=== PATIENT | female | born 1965 | race Caucasian/White ===

== ENCOUNTER 2017-11-11 13:28 | Outpatient (CLI) | payer OTHER ==
--- NOTE | 2017-11-17 15:35 | MMO ---
MAMMOGRAM DIGITAL SCREENING BILATERAL: DATE: 11/11/17. HISTORY: A 52-year-old female for routine bilateral screening mammogram. COMPARISON: 03/20/16 and 09/01/14. TECHNIQUE: Digital mammographic views. Computer-aided detection (CAD) utilized. FINDINGS: The breasts are heterogeneously dense, which may obscure small masses. There is no evidence of suspicious mass, suspicious calcifications, or architectural distortion. The re is no significant interval change since the prior mammogram. IMPRESSION: 1) BIRADS 1- Negative. 2) Recommendation: routine bilateral annual screening mammogram (unless the patient develops suspicio us clinical findings that would warrant earlier imaging follow up). BIRADS 1: Negative Routine annual screening mammography (for women over age 40) jil [] POS: JASON
== END 2017-11-11 13:29 | disposition home or self-care (01) ==
LOC: SCSMAMMO 13:28
PROVIDERS: ATTEND Family Medicine
DX: Z12.31 Encounter for screening mammogram for malignant neoplasm of breast (principal)
CPT/HCPCS: 77067

== ENCOUNTER 2019-01-19 10:04 | Outpatient (CLI) | payer OTHER ==
--- NOTE | 2019-01-19 10:32 | RAD ---
EXAM: 3 views of the right hand COMPARISON: None HISTORY: Hand pain FINDINGS: 3 views of the right hand shows no evidence of acute fracture or dislocation. Joint space n arrowing is seen in the metacarpophalangeal joint of the index finger. Joint space narrowing is also seen in the first CMC joint. No soft tissue swelling is present. IMPRESSION: Mild right hand osteoarthritis without acute osseous abnormality.
[2019-01-19 16:51] LABS: CCP IgG Antibody 0.9 EliAU/mL (<7 Negative); EliA RAS New Method **** NEW METHOD ****; Rheumatoid Factor IgA Antibody 2.8 IU/mL (<14 Negative); Rheumatoid Factor IgM Antibody 0.5 IU/mL (<3.5 Negative)
== END 2019-01-19 10:05 | disposition home or self-care (01) ==
LOC: SCSRAD 10:04
PROVIDERS: ATTEND Family Medicine
DX: M13.0 Polyarthritis, unspecified (principal)
CPT/HCPCS: 36415; 83520; 86200

== ENCOUNTER 2020-01-11 14:09 | Outpatient (CLI) | payer OTHER ==
--- NOTE | 2020-01-13 08:11 | MMO ---
Bilateral MAMMO Bilat Screen [facility]. CLINICAL HISTORY: Patient is 54 years old and is seen for screening. The patient has no family history of breast cancer. The patient has no personal history of cancer. VIEWS: The views performed were: bilateral craniocaudal with tomosynthesis; bilateral mediolateral oblique with tomosynthesis; and bilateral exaggerated craniocaudal. FILMS COMPARED: The present examination has been compared to prior imaging studies performed at 09/01/2014 and 11/11/2017, and at [facility] on 02/08/2019. This study has been interpreted with the assistance of computer-aided detection. MAMMOGRAM FINDINGS: The breasts are heterogeneously dense, which could obscure a lesion on mammography. There are no suspicious masses, suspicious calcifications, or new areas of architectural distortion. IMPRESSION: THERE IS NO MAMMOGRAPHIC EVIDENCE OF MALIGNANCY. A ROUTINE FOLLOW-UP MAMMOGRAM IN 1 YEAR IS RECOMMENDED. THE RESULTS OF THIS EXAM WERE SENT TO THE PATIENT. ACR BI-RADS Category 1 - Negative MAMMOGRAPHY NOTE: 1. A negative mammogram report should not delay a biopsy if a dominant of clinically suspicious mass is present. 2. Approximately 10% to 15% of breast cancers are not detected by mammography. 3. Adenosis and dense breasts may obscure an underlying neoplasm. Reported by: Karla AGUILAR Electonically Signed: [id number]
== END 2020-01-11 14:10 | disposition home or self-care (01) ==
LOC: BICMAMMO 14:09
PROVIDERS: ATTEND Obstetrics & Gynecology
DX: Z12.31 Encounter for screening mammogram for malignant neoplasm of breast (principal)
CPT/HCPCS: 77063; 77067

== ENCOUNTER 2020-01-11 14:35 | Outpatient (CLI) | payer OTHER ==
--- NOTE | 2020-01-11 15:00 | RAD ---
EXAM: Chest PA and lateral: HISTORY: Chronic bronchitis COMPARISON: 03/17/2003 FINDINGS: Mild bilateral hyperinflation chronic lung change. Minimally progressive pleural and parenchymal scarring in the left lower lobe and left lung base. Heart size:Within normal limits. Lungs:Clear of acute process. No confluent pneumonia, overt edema, pleural effusion, or other acute process. IMPRESSION: Minimally progressive scarring particularly in the left base. No significant new process.
== END 2020-01-11 14:36 | disposition home or self-care (01) ==
LOC: BICRAD 14:35
PROVIDERS: ATTEND Otolaryngology Otolaryngic Allergy
DX: J42 Unspecified chronic bronchitis (principal); J98.4 Other disorders of lung
CPT/HCPCS: 71046

== ENCOUNTER 2021-03-12 13:05 | Outpatient (CLI) | payer OTHER | END 2021-03-12 13:06 | disposition home or self-care (01) | LOC: SCSMRI 13:05 | PROVIDERS: ATTEND Orthopaedic Surgery | DX: M17.12 Unilateral primary osteoarthritis, left knee (principal); S83.242A Other tear of medial meniscus, current injury, left knee, initial encounter; M22.2X2 Patellofemoral disorders, left knee; M25.462 Effusion, left knee ==

== ENCOUNTER 2021-04-16 12:35 | Outpatient (CLI) | payer OTHER ==
[2021-04-16 13:53] LABS: #Basophils 0.1 10x3/uL (0.0-0.2); #Eosinphils 0.2 10x3/uL (0.0-0.5); #Monocytes 0.4 10x3/uL (0.0-1.1); #Neutrophils 2.6 10x3/uL (1.5-8.4); %Eosinophils 3.8 % (0.0-6.0); %Lymphocytes 37.5 % (18.0-47.0); %Monocytes 7.6 % (0.0-10.0); %Neutrophils 49.9 % (40.0-75.0); Hemoglobin 12.3 g/dL (12.0-15.5); Mean Corpuscular Hemoglobin 30.4 pg (27.0-33.0); Mean Corpuscular Volume 92.1 fl (81.6-98.3); Platelet Count 245 10x3/uL (150-450); RBC Distribution Width 12.1 % (11.5-14.5); Red Blood Cell (RBC) Count 4.05 10x6/uL (3.90-5.03); White Blood Cell (WBC) Count 5.3 10x3/uL (3.5-10.5)
[2021-04-16 14:05] LABS: Anion Gap 13 mmol/L (10-20); BUN (Urea Nitrogen) 10 mg/dL (9.8-20.1); Calc. Creatinine Clearance 0 mL/min (70-130); Calcium 9.5 mg/dL (7.8-10.44); Carbon Dioxide 28 mmol/L (22-29); Chloride 103 mmol/L (98-107); Glucose 91 mg/dL (70-105); Potassium 3.9 mmol/L (3.5-5.1); Sodium 140 mmol/L (136-145)
[2021-04-17 07:24] LABS: SARS-CoV-2 PCR by NAA DETECTED (NotDetected)
== END 2021-04-16 12:36 | disposition home or self-care (01) ==
LOC: LABBT 12:35
PROVIDERS: ATTEND Orthopaedic Surgery
DX: U07.1 COVID-19 (principal); Z01.818 Encounter for other preprocedural examination; M17.12 Unilateral primary osteoarthritis, left knee
CPT/HCPCS: 71046; 80048; 85025; 93005; 93010; U0003; U0005

== ENCOUNTER 2021-05-17 06:12 | Day surgery (SDC) | payer OTHER ==
[2021-05-08 13:17] VITALS: BMI 25.7
[2021-05-17] MEDS ORDERED: Bupivacaine 0.25% HCL 30 ML VIAL ONE (06:34)
[2021-05-17] MEDS ORDERED: EPINEPHrine 1 MG/ML AMP ONE (06:34)
[2021-05-17] MEDS ORDERED: Midazolam HCl 2 mg/2 ml Vial ONE (06:47)
[2021-05-17] MEDS ORDERED: PROPOFOL 20 ML ONE (06:48)
[2021-05-17] MEDS ORDERED: Fentanyl 100 MCG/2 ML VIAL ONE (07:04)
[2021-05-17] MEDS ORDERED: Dexmedetomidine 200 MCG/2 ML VIAL ONE (07:05)
[2021-05-17] MEDS ORDERED: ceFAZolin 2 GM/Dextrose 50 ML IVPB ONE (07:17)
[2021-05-17] MEDS ORDERED: Ketorolac Tromethamine 30 MG/ML VIAL ONE (07:36)
[2021-05-17] MEDS ORDERED: Ondansetron PF 4 MG/2 ML Vial ONE (07:36)
[2021-05-17] MEDS ORDERED: Bupivacaine PF 0.5% 30 ML VIAL ONE (07:36)
[2021-05-17] MEDS ORDERED: Lidocaine 1% PF 5 ML VIAL ONE (07:36)
[2021-05-17] MEDS ORDERED: Lidocaine 2% w/Epinephrine 1:200K 20 ML VIAL ONE (07:36)
[2021-05-17] MEDS ORDERED: ePHEDrine 50 MG/ML VIAL ONE (07:36)
[2021-05-17] MEDS ORDERED: Dexamethasone 20 MG/5 ML VIAL ONE (07:36)
[2021-05-17] MEDS ORDERED: PROPOFOL 200 MG/20 ML VIAL ONE (07:36)
== END 2021-05-17 10:25 | disposition home or self-care (01) ==
LOC: SDC 06:12
PROVIDERS: ATTEND Orthopaedic Surgery
PROC: 0SBD4ZZ Excision of Left Knee Joint, Percutaneous Endoscopic Approach (ICD-10-PCS; principal; 2021-05-17)
DX: S83.242A Other tear of medial meniscus, current injury, left knee, initial encounter (principal); S83.282A Other tear of lateral meniscus, current injury, left knee, initial encounter; M17.12 Unilateral primary osteoarthritis, left knee
CPT/HCPCS: J0171; J0690; J1100; J1885; J2250; J2405; J2704; J3010; J3490; S0020

== ENCOUNTER 2021-10-18 15:28 | Outpatient (CLI) | payer OTHER | END 2021-10-18 15:29 | disposition home or self-care (01) | LOC: BICMAMMO 15:28 | PROVIDERS: ATTEND Family Medicine | DX: Z12.31 Encounter for screening mammogram for malignant neoplasm of breast (principal) | CPT/HCPCS: 77063; 77067 ==

== ENCOUNTER 2022-04-03 08:52 | Outpatient (CLI) | payer OTHER ==
[2022-04-03 09:50] LABS: #Basophils 0.1 10x3/uL (0.0-0.2); #Eosinphils 0.2 10x3/uL (0.0-0.5); #Monocytes 0.4 10x3/uL (0.0-1.1); #Neutrophils 3.5 10x3/uL (1.5-8.4); %Eosinophils 3.5 % (0.0-6.0); %Lymphocytes 33.3 % (18.0-47.0); Hemoglobin 12.5 g/dL (12.0-15.5); Mean Corpuscular Hemoglobin 30.4 pg (27.0-33.0); Mean Corpuscular Volume 92.2 fl (81.6-98.3); Mean Platelet Volume 9.8 fl (7.4-10.4); Platelet Count 248 10x3/uL (150-450); RBC Distribution Width 12.9 % (11.5-14.5); Red Blood Cell (RBC) Count 4.11 10x6/uL (3.90-5.03); White Blood Cell (WBC) Count 6.3 10x3/uL (3.5-10.5)
== END 2022-04-03 08:53 | disposition home or self-care (01) ==
LOC: LABBT 08:52
PROVIDERS: ATTEND Orthopaedic Surgery Hand Surgery
DX: Z01.818 Encounter for other preprocedural examination (principal); M18.11 Unilateral primary osteoarthritis of first carpometacarpal joint, right hand
CPT/HCPCS: 85025; 93005; 93010

== ENCOUNTER 2022-11-04 15:42 | Outpatient (CLI) | payer OTHER | END 2022-11-04 15:43 | disposition home or self-care (01) | LOC: SCSRAD 15:42 | PROVIDERS: ATTEND Family Medicine | DX: R59.0 Localized enlarged lymph nodes (principal) | CPT/HCPCS: 71046 ==

== ENCOUNTER 2022-11-07 17:01 | Inpatient (IN) | payer OTHER ==
[2022-11-07] MEDS ORDERED: Acetaminophen 325 MG TAB PO PRN (20:24)
[2022-11-07] MEDS ORDERED: Ondansetron ODT 4 MG TAB PO PRN (20:24)
[2022-11-07] MEDS ORDERED: Senokot S 8.6-50 MG TAB PO PRN (20:24)
[2022-11-07] MEDS ORDERED: Dextrose 5%-Lactated Ringers 1,000 ML IV SCH (20:30)
[2022-11-07] MEDS: Famotidine 20 MG TAB PO SCH (21:30)
[2022-11-07 21:32] LABS: #Basophils 0.1 thou/uL (0.0-0.2); #Eosinphils 0.1 thou/uL (0.0-0.7); #Monocytes 0.5 thou/uL (0.11-0.59); #Neutrophils 6.5 thou/uL (1.40-6.50); %Basophils 0.6 % (0.0-1.0); %Eosinophils 0.6 % (0.0-10.0); %Monocytes 6.6 % (0.0-10.0); Hematocrit 37.3 % (36.0-47.0); Hemoglobin 12.1 g/dL (12.0-16.0); Mean Corpuscular HGB CONC 32.4 g/dL (32.0-36.0); Mean Corpuscular Hemoglobin 30.2 pg (27.0-31.0); Platelet Count 295 10x3/uL (130-400); RBC Distribution Width 13.6 % (11.5-14.5); Red Blood Cell (RBC) Count 4.01 mill/uL (4.20-5.40); White Blood Cell (WBC) Count 8.2 10x3/uL (4.8-10.8)
[2022-11-07] MEDS ORDERED: Morphine 4 MG/ML VIAL SLOW IVP PRN (21:39)
[2022-11-07 22:03] LABS: BUN (Urea Nitrogen) 12 mg/dL (9.8-20.1); Calc. Creatinine Clearance 104 mL/min (70-130); Calcium 7.9 mg/dL (7.8-10.44); Carbon Dioxide 18 mmol/L (22-29); Estimated GFR 103; Glucose 129 mg/dL (70-105)
[2022-11-07 22:13] LABS: Anion Gap 18 mmol/L (10-20); Chloride 102 mmol/L (98-107); Sodium 133 mmol/L (136-145)
[2022-11-07] MEDS: Dextrose 5%-Lactated Ringers 1,000 ML IV SCH (22:28)
[2022-11-07] MEDS: Morphine 4 MG/ML VIAL SLOW IVP PRN (22:33)
[2022-11-08] MEDS ORDERED: hydrOXYzine 25 MG TAB PO SCH ×2 (02:30→21:00)
[2022-11-08] MEDS: Morphine 4 MG/ML VIAL SLOW IVP PRN (04:49)
[2022-11-08 05:29] LABS: #Monocytes 0.6 thou/uL (0.11-0.59); #Neutrophils 7.6 thou/uL (1.40-6.50); %Basophils 0.3 % (0.0-1.0); %Eosinophils 0.1 % (0.0-10.0); %Lymphocytes 8.7 % (21.0-51.0); %Monocytes 6.6 % (0.0-10.0); %Neutrophils 83.9 % (42.0-75.0); Mean Corpuscular HGB CONC 32.4 g/dL (32.0-36.0); Mean Corpuscular Hemoglobin 29.9 pg (27.0-31.0); Mean Corpuscular Volume 92.3 fl (78.0-98.0); Mean Platelet Volume 9.9 fL (7.4-10.4); Platelet Count 280 10x3/uL (130-400); RBC Distribution Width 13.6 % (11.5-14.5); Red Blood Cell (RBC) Count 4.01 mill/uL (4.20-5.40); White Blood Cell (WBC) Count 9.1 10x3/uL (4.8-10.8)
[2022-11-08 05:52] LABS: ALT (SGPT) 222 U/L (8-55); AST (SGOT) 200 U/L (5-34); Albumin 3.4 g/dL (3.5-5.0); Alkaline Phosphatase 165 U/L (40-110); Anion Gap 15 mmol/L (10-20); BUN (Urea Nitrogen) 14 mg/dL (9.8-20.1); Bilirubin, Total 0.4 mg/dL (0.2-1.2); Calc. Creatinine Clearance 98 mL/min (70-130); Calcium 7.9 mg/dL (7.8-10.44); Carbon Dioxide 18 mmol/L (22-29); Chloride 102 mmol/L (98-107); Estimated GFR 102; Globulin 2.5 g/dL (2.4-3.5); Glucose 158 mg/dL (70-105); Potassium 4.4 mmol/L (3.5-5.1); Protein, Total 5.9 g/dL (6.0-8.3); Sodium 131 mmol/L (136-145)
[2022-11-08] MEDS ORDERED: Temazepam 15 MG CAP PO PRN (08:51)
[2022-11-08] MEDS ORDERED: Lisinopril 20 MG TAB PO SCH (09:00)
[2022-11-08] MEDS: ALPRAZolam 0.5 MG TAB PO PRN ×2 (09:17→18:55)
[2022-11-08] MEDS: Multivit, Therapeutic 1 TAB PO SCH (09:17)
[2022-11-08] MEDS: Famotidine 20 MG TAB PO SCH ×2 (09:17→19:30)
[2022-11-08] MEDS: Dextrose 5%-Lactated Ringers 1,000 ML IV SCH (12:26)
[2022-11-08] MEDS ORDERED: Ketorolac Tromethamine 30 MG/ML VIAL IVP SCH (14:00)
[2022-11-08] MEDS: LevoFLOXacin 750 mg/D5W 750 MG in Premix Bag 1 BAG IVPB SCH (14:17)
[2022-11-08] MEDS ORDERED: Fentanyl 250 MCG/5 ML VIAL ONE (14:21)
[2022-11-08] MEDS ORDERED: Lidocaine 1% PF 5 ML VIAL ONE (14:32)
[2022-11-08] MEDS ORDERED: Bupivacaine HCl 0.5%/Epinephrine 1:200,000/PF 30 ml Vial ONE ×2 (14:32→14:38)
[2022-11-08] MEDS ORDERED: PHENYLEPHRINE-NS 100 MCG/ML 10 ML SYRINGE ONE (14:32)
[2022-11-08] MEDS ORDERED: Ondansetron PF 4 MG/2 ML Vial ONE (14:32)
[2022-11-08] MEDS ORDERED: NEOSTIGMINE 3 MG/3 ML SYR 3 MG/3 ML SYRINGE ONE (14:32)
[2022-11-08] MEDS ORDERED: PROPOFOL 200 MG/20 ML VIAL ONE (14:32)
[2022-11-08] MEDS ORDERED: Rocuronium Bromide 10 MG/ML (10ML VIAL) ONE (14:32)
[2022-11-08] MEDS ORDERED: Dexamethasone 20 MG/5 ML VIAL ONE (14:32)
[2022-11-08] MEDS ORDERED: Glycopyrrolate 0.2 MG/ML 5 ML SYRINGE ONE (14:32)
[2022-11-08] MEDS ORDERED: Ondansetron HCl/PF 4 MG/2 ML Vial IVP PRN (17:07)
[2022-11-08] MEDS ORDERED: Promethazine HCl 25 MG/ML VIAL IM PRN (17:07)
[2022-11-08] MEDS ORDERED: Fentanyl 100 MCG/2 ML VIAL SLOW IVP PRN (17:10)
[2022-11-08] MEDS ORDERED: fentaNYL 50 mcg/mL 1 mL Vial ONE ×3 (17:19→18:12)
[2022-11-08] MEDS: Lactated Ringer's 1,000 ML IV SCH ×2 (17:28→22:58)
[2022-11-08] MEDS: traMADol HCl 50 MG TAB PO PRN (19:20)
[2022-11-08] MEDS: Nicotine 14 MG PATCH TD SCH (19:24)
[2022-11-08] MEDS: Ketorolac Tromethamine 30 MG/ML VIAL IVP PRN (20:28)
[2022-11-08] MEDS ORDERED: Gabapentin 300 MG CAP PO SCH (21:00)
[2022-11-08] MEDS ORDERED: Montelukast Sodium 10 mg Tablet PO SCH (21:00)
[2022-11-08] MEDS: fentaNYL 50 mcg/mL 1 mL Vial SLOW IVP PRN (21:00)
[2022-11-08] MEDS ORDERED: Fluticasone Propionate Nasal Spray 16 gm Bottle NASAL PRN (23:20)
[2022-11-08] MEDS ORDERED: Azelastine 137 MCG/NASAL Spray 30 ML NS PRN (23:21)
[2022-11-09] MEDS: ALPRAZolam 0.5 MG TAB PO PRN ×2 (01:47→20:10)
[2022-11-09] MEDS: fentaNYL 50 mcg/mL 1 mL Vial SLOW IVP PRN (02:24)
[2022-11-09] MEDS: Ketorolac Tromethamine 30 MG/ML VIAL IVP PRN ×2 (05:02→14:45)
[2022-11-09] MEDS: traMADol HCl 50 MG TAB PO PRN (05:03)
[2022-11-09 06:01] LABS: #Monocytes 0.7 thou/uL (0.11-0.59); #Neutrophils 8.2 thou/uL (1.40-6.50); %Basophils 0.3 % (0.0-1.0); %Eosinophils 0.1 % (0.0-10.0); %Lymphocytes 10.4 % (21.0-51.0); %Monocytes 6.7 % (0.0-10.0); %Neutrophils 81.9 % (42.0-75.0); Hematocrit 34.3 % (36.0-47.0); Hemoglobin 11.2 g/dL (12.0-16.0); Mean Corpuscular HGB CONC 32.7 g/dL (32.0-36.0); Mean Corpuscular Hemoglobin 30.3 pg (27.0-31.0); Mean Corpuscular Volume 92.7 fl (78.0-98.0); Platelet Count 261 10x3/uL (130-400); RBC Distribution Width 13.7 % (11.5-14.5)
[2022-11-09 06:22] LABS: Anion Gap 12 mmol/L (10-20); BUN (Urea Nitrogen) 12 mg/dL (9.8-20.1); Calc. Creatinine Clearance 111 mL/min (70-130); Calcium 7.5 mg/dL (7.8-10.44); Carbon Dioxide 22 mmol/L (22-29); Chloride 100 mmol/L (98-107); Estimated GFR 104; Glucose 99 mg/dL (70-105); Potassium 4.3 mmol/L (3.5-5.1); Sodium 130 mmol/L (136-145)
[2022-11-09 08:48] LABS: ALT (SGPT) 265 U/L (8-55); AST (SGOT) 223 U/L (5-34); Albumin 2.8 g/dL (3.5-5.0); Alkaline Phosphatase 117 U/L (40-110); Bilirubin, Direct 0.3 mg/dL (0.1-0.3); Bilirubin, Total 0.4 mg/dL (0.2-1.2)
[2022-11-09] MEDS ORDERED: Pantoprazole 40 MG VIAL IVP SCH (09:00)
[2022-11-09] MEDS: HYDROcodone/Acetaminophen 5/325 mg Tablet PO PRN ×3 (09:47→20:10)
[2022-11-09] MEDS: Famotidine 20 MG TAB PO SCH ×2 (09:48→20:10)
[2022-11-09] MEDS: Multivit, Therapeutic 1 TAB PO SCH (09:50)
[2022-11-09] MEDS: Lactated Ringer's 1,000 ML IV SCH (10:18)
[2022-11-09] MEDS: Ipratropium/Albuterol 3 ML NEB NEB SCH ×2 (14:01→18:14)
[2022-11-09] MEDS: Nicotine 14 MG PATCH TD SCH (14:44)
[2022-11-09] MEDS: LevoFLOXacin 750 mg/D5W 750 MG in Premix Bag 1 BAG IVPB SCH (14:44)
[2022-11-09] MEDS ORDERED: Cyclobenzaprine 10 MG TAB PO SCH (16:00)
[2022-11-10] MEDS: HYDROcodone/Acetaminophen 5/325 mg Tablet PO PRN ×5 (00:32→20:28)
[2022-11-10] MEDS: ALPRAZolam 0.5 MG TAB PO PRN ×4 (00:33→20:27)
[2022-11-10] MEDS: Ipratropium/Albuterol 3 ML NEB NEB SCH ×2 (01:39→07:25)
[2022-11-10 07:16] LABS: #Eosinphils 0.1 thou/uL (0.0-0.7); #Monocytes 0.5 thou/uL (0.11-0.59); #Neutrophils 6.5 thou/uL (1.40-6.50); %Basophils 0.3 % (0.0-1.0); %Eosinophils 1.4 % (0.0-10.0); %Lymphocytes 8.8 % (21.0-51.0); %Monocytes 6.4 % (0.0-10.0); %Neutrophils 82.7 % (42.0-75.0); Hematocrit 31.3 % (36.0-47.0); Hemoglobin 10.2 g/dL (12.0-16.0); Mean Corpuscular HGB CONC 32.6 g/dL (32.0-36.0); Mean Corpuscular Hemoglobin 30.5 pg (27.0-31.0); Mean Corpuscular Volume 93.7 fl (78.0-98.0); Mean Platelet Volume 9.5 fL (7.4-10.4); Platelet Count 229 10x3/uL (130-400); RBC Distribution Width 13.9 % (11.5-14.5); Red Blood Cell (RBC) Count 3.34 mill/uL (4.20-5.40); White Blood Cell (WBC) Count 7.8 10x3/uL (4.8-10.8)
[2022-11-10 07:33] LABS: ALT (SGPT) 196 U/L (8-55); AST (SGOT) 124 U/L (5-34); Albumin 2.7 g/dL (3.5-5.0); Alkaline Phosphatase 104 U/L (40-110); Anion Gap 11 mmol/L (10-20); BUN (Urea Nitrogen) 7 mg/dL (9.8-20.1); Bilirubin, Total 0.3 mg/dL (0.2-1.2); Calc. Creatinine Clearance 130 mL/min (70-130); Calcium 7.7 mg/dL (7.8-10.44); Carbon Dioxide 25 mmol/L (22-29); Chloride 102 mmol/L (98-107); Estimated GFR 109; Globulin 2.2 g/dL (2.4-3.5); Glucose 106 mg/dL (70-105); Potassium 4.2 mmol/L (3.5-5.1); Protein, Total 4.9 g/dL (6.0-8.3); Sodium 134 mmol/L (136-145)
[2022-11-10] MEDS: Famotidine 20 MG TAB PO SCH ×2 (09:39→20:27)
[2022-11-10] MEDS: Multivit, Therapeutic 1 TAB PO SCH (09:40)
[2022-11-10] MEDS: LevoFLOXacin 750 mg/D5W 750 MG in Premix Bag 1 BAG IVPB SCH (13:39)
[2022-11-10] MEDS: Ipratropium/Albuterol 3 ML NEB EZPAP SCH ×2 (14:45→19:07)
[2022-11-10] MEDS: Nicotine 14 MG PATCH TD SCH (15:27)
[2022-11-10] MEDS: Bisacodyl 10 MG SUPP PR SCH ×2 (20:28→20:30)
[2022-11-10] MEDS ORDERED: Ketorolac Tromethamine 10 MG TAB PO PRN (23:14)
[2022-11-11] MEDS: HYDROcodone/Acetaminophen 5/325 mg Tablet PO PRN ×5 (00:39→20:21)
[2022-11-11] MEDS: Ipratropium/Albuterol 3 ML NEB EZPAP SCH ×4 (00:47→19:09)
[2022-11-11 06:35] LABS: #Eosinphils 0.2 thou/uL (0.0-0.7); #Monocytes 0.4 thou/uL (0.11-0.59); #Neutrophils 4.6 thou/uL (1.40-6.50); %Basophils 0.3 % (0.0-1.0); %Eosinophils 3.4 % (0.0-10.0); %Lymphocytes 12.2 % (21.0-51.0); %Monocytes 6.1 % (0.0-10.0); %Neutrophils 77.7 % (42.0-75.0); Hematocrit 34.9 % (36.0-47.0); Mean Corpuscular HGB CONC 31.5 g/dL (32.0-36.0); Mean Corpuscular Hemoglobin 29.6 pg (27.0-31.0); Mean Corpuscular Volume 94.1 fl (78.0-98.0); Mean Platelet Volume 9.5 fL (7.4-10.4); Platelet Count 262 10x3/uL (130-400); RBC Distribution Width 13.8 % (11.5-14.5); Red Blood Cell (RBC) Count 3.71 mill/uL (4.20-5.40); White Blood Cell (WBC) Count 5.9 10x3/uL (4.8-10.8)
[2022-11-11 07:10] LABS: ALT (SGPT) 154 U/L (8-55); AST (SGOT) 81 U/L (5-34); Albumin 2.7 g/dL (3.5-5.0); Alkaline Phosphatase 102 U/L (40-110); Anion Gap 12 mmol/L (10-20); BUN (Urea Nitrogen) 7 mg/dL (9.8-20.1); Bilirubin, Total 0.4 mg/dL (0.2-1.2); Calc. Creatinine Clearance 107 mL/min (70-130); Calcium 8.1 mg/dL (7.8-10.44); Carbon Dioxide 23 mmol/L (22-29); Chloride 103 mmol/L (98-107); Estimated GFR 104; Globulin 2.4 g/dL (2.4-3.5); Glucose 96 mg/dL (70-105); Potassium 3.5 mmol/L (3.5-5.1); Protein, Total 5.1 g/dL (6.0-8.3); Sodium 134 mmol/L (136-145)
[2022-11-11] MEDS: Acetaminophen 325 MG TAB PO PRN ×2 (07:47→17:52)
[2022-11-11] MEDS: Multivit, Therapeutic 1 TAB PO SCH (07:49)
[2022-11-11] MEDS: Polyethylene Glycol 3350 17 GM Packet PO SCH (08:34)
[2022-11-11] MEDS: Senokot S 8.6-50 MG TAB PO SCH ×2 (08:34→20:22)
[2022-11-11] MEDS: Famotidine 20 MG TAB PO SCH ×2 (08:34→20:21)
[2022-11-11] MEDS ORDERED: Electrolyte Replacement Protocol 1 EACH FS SCH (10:15)
[2022-11-11] MEDS ORDERED: Potassium Chloride 20 MEQ TAB PO SCH (10:15)
[2022-11-11] MEDS ORDERED: Electrolyte Replacement Protocol FS PRN (10:15)
[2022-11-11 10:32] LABS: #Eosinphils 0.2 thou/uL (0.0-0.7); #Monocytes 0.5 thou/uL (0.11-0.59); #Neutrophils 5.4 thou/uL (1.40-6.50); Hemoglobin 11.5 g/dL (12.0-16.0); RBC Distribution Width 13.8 % (11.5-14.5); White Blood Cell (WBC) Count 6.8 10x3/uL (4.8-10.8)
[2022-11-11 10:41] LABS: %Basophils 0.4 % (0.0-1.0); %Eosinophils 2.5 % (0.0-10.0); %Lymphocytes 10.8 % (21.0-51.0); %Monocytes 6.6 % (0.0-10.0); %Neutrophils 79.4 % (42.0-75.0); Hematocrit 35.7 % (36.0-47.0); Mean Corpuscular HGB CONC 32.2 g/dL (32.0-36.0); Mean Corpuscular Hemoglobin 30.1 pg (27.0-31.0); Mean Corpuscular Volume 93.5 fl (78.0-98.0); Mean Platelet Volume 9.4 fL (7.4-10.4); Platelet Count 279 10x3/uL (130-400); Red Blood Cell (RBC) Count 3.82 mill/uL (4.20-5.40)
[2022-11-11] MEDS: ALPRAZolam 0.5 MG TAB PO PRN ×2 (11:52→18:04)
[2022-11-11] MEDS: Furosemide 40 MG/4 ML VIAL SLOW IVP SCH (14:20)
[2022-11-11] MEDS: LevoFLOXacin 500 mg/D5W 500 MG in Premix Bag 1 BAG IVPB SCH (14:21)
[2022-11-11] MEDS: Nicotine 14 MG PATCH TD SCH (14:21)
[2022-11-11 15:43] LABS: Potassium 4.9 mmol/L (3.5-5.1)
[2022-11-11] MEDS: traMADol HCl 50 MG TAB PO PRN (18:04)
[2022-11-11] MEDS ORDERED: Bisacodyl 10 MG SUPP PR PRN (21:46)
[2022-11-12] MEDS: Ipratropium/Albuterol 3 ML NEB EZPAP SCH ×4 (01:00→18:33)
[2022-11-12] MEDS: HYDROcodone/Acetaminophen 5/325 mg Tablet PO PRN (03:19)
[2022-11-12] MEDS: Furosemide 40 MG/4 ML VIAL SLOW IVP SCH ×2 (05:53→14:14)
[2022-11-12] MEDS: Famotidine 20 MG TAB PO SCH ×2 (08:05→21:29)
[2022-11-12] MEDS: ALPRAZolam 0.5 MG TAB PO PRN ×2 (08:05→17:40)
[2022-11-12] MEDS: Senokot S 8.6-50 MG TAB PO SCH ×2 (08:06→21:29)
[2022-11-12] MEDS: Multivit, Therapeutic 1 TAB PO SCH (08:06)
[2022-11-12] MEDS: Polyethylene Glycol 3350 17 GM Packet PO SCH (08:07)
[2022-11-12] MEDS: traMADol HCl 50 MG TAB PO PRN ×2 (08:09→14:14)
[2022-11-12 09:37] LABS: ALT (SGPT) 151 U/L (8-55); AST (SGOT) 71 U/L (5-34); Albumin 3.3 g/dL (3.5-5.0); Alkaline Phosphatase 117 U/L (40-110); Anion Gap 15 mmol/L (10-20); BUN (Urea Nitrogen) 13 mg/dL (9.8-20.1); Bilirubin, Total 0.5 mg/dL (0.2-1.2); Calc. Creatinine Clearance 101 mL/min (70-130); Calcium 9.5 mg/dL (7.8-10.44); Carbon Dioxide 28 mmol/L (22-29); Chloride 96 mmol/L (98-107); Estimated GFR 102; Globulin 3.4 g/dL (2.4-3.5); Glucose 108 mg/dL (70-105); Potassium 4.4 mmol/L (3.5-5.1); Protein, Total 6.7 g/dL (6.0-8.3); Sodium 135 mmol/L (136-145)
[2022-11-12] MEDS: LevoFLOXacin 500 mg/D5W 500 MG in Premix Bag 1 BAG IVPB SCH (13:41)
[2022-11-12] MEDS: Nicotine 14 MG PATCH TD SCH (15:52)
[2022-11-12] MEDS ORDERED: Morphine 2 MG/ML VIAL SLOW IVP PRN (16:05)
[2022-11-12] MEDS: Acetaminophen 325 MG TAB PO PRN (17:38)
[2022-11-13] MEDS: traMADol HCl 50 MG TAB PO PRN ×3 (00:40→19:42)
[2022-11-13] MEDS: Ipratropium/Albuterol 3 ML NEB EZPAP SCH ×4 (01:14→18:34)
[2022-11-13] MEDS: Acetaminophen 325 MG TAB PO PRN (05:27)
[2022-11-13 05:36] VITALS: BMI 25.0
[2022-11-13 06:05] LABS: ALT (SGPT) 109 U/L (8-55); AST (SGOT) 52 U/L (5-34); Albumin 3.1 g/dL (3.5-5.0); Alkaline Phosphatase 114 U/L (40-110); Anion Gap 13 mmol/L (10-20); BUN (Urea Nitrogen) 12 mg/dL (9.8-20.1); Bilirubin, Total 0.5 mg/dL (0.2-1.2); Calc. Creatinine Clearance 103 mL/min (70-130); Carbon Dioxide 23 mmol/L (22-29); Chloride 99 mmol/L (98-107); Estimated GFR 103; Globulin 3.1 g/dL (2.4-3.5); Glucose 135 mg/dL (70-105); Potassium 3.9 mmol/L (3.5-5.1); Protein, Total 6.2 g/dL (6.0-8.3); Sodium 131 mmol/L (136-145)
[2022-11-13] MEDS: Polyethylene Glycol 3350 17 GM Packet PO SCH (07:52)
[2022-11-13] MEDS: Famotidine 20 MG TAB PO SCH ×2 (07:52→19:42)
[2022-11-13] MEDS: Senokot S 8.6-50 MG TAB PO SCH ×2 (07:53→22:36)
[2022-11-13] MEDS: ALPRAZolam 0.5 MG TAB PO PRN ×2 (07:53→14:24)
[2022-11-13] MEDS: Furosemide 20 MG TAB PO SCH (07:53)
[2022-11-13] MEDS: Multivit, Therapeutic 1 TAB PO SCH ×2 (07:53→10:21)
[2022-11-13] MEDS: Furosemide 40 MG/4 ML VIAL SLOW IVP SCH (07:54)
[2022-11-13] MEDS ORDERED: Iopamidol-370 76% 500 ML MDV (1 ML CHARGE) ONE (09:49)
[2022-11-13] MEDS ORDERED: Mineral Oil ENEMA PR SCH (10:30)
[2022-11-13] MEDS: Nicotine 14 MG PATCH TD SCH (14:28)
[2022-11-13] MEDS: LevoFLOXacin 500 mg/D5W 500 MG in Premix Bag 1 BAG IVPB SCH (17:38)
[2022-11-14] MEDS: Ipratropium/Albuterol 3 ML NEB EZPAP SCH ×5 (00:37→18:46)
[2022-11-14] MEDS: traMADol HCl 50 MG TAB PO PRN ×4 (03:01→21:11)
[2022-11-14] MEDS: ALPRAZolam 0.5 MG TAB PO PRN ×3 (03:02→21:13)
[2022-11-14 04:12] LABS: ALT (SGPT) 93 U/L (8-55); AST (SGOT) 54 U/L (5-34); Albumin 3.2 g/dL (3.5-5.0); Alkaline Phosphatase 117 U/L (40-110); Anion Gap 12 mmol/L (10-20); BUN (Urea Nitrogen) 13 mg/dL (9.8-20.1); Bilirubin, Total 0.3 mg/dL (0.2-1.2); Calc. Creatinine Clearance 102 mL/min (70-130); Calcium 9.1 mg/dL (7.8-10.44); Carbon Dioxide 26 mmol/L (22-29); Chloride 100 mmol/L (98-107); Estimated GFR 103; Globulin 3.1 g/dL (2.4-3.5); Glucose 94 mg/dL (70-105); Potassium 4.4 mmol/L (3.5-5.1); Protein, Total 6.3 g/dL (6.0-8.3); Sodium 134 mmol/L (136-145)
[2022-11-14] MEDS: Furosemide 20 MG TAB PO SCH (08:36)
[2022-11-14] MEDS: Multivit, Therapeutic 1 TAB PO SCH (08:36)
[2022-11-14] MEDS: Famotidine 20 MG TAB PO SCH ×2 (08:36→21:13)
[2022-11-14] MEDS: Senokot S 8.6-50 MG TAB PO SCH ×2 (08:50→21:16)
[2022-11-14] MEDS: Polyethylene Glycol 3350 17 GM Packet PO SCH ×2 (08:50→13:17)
[2022-11-14] MEDS: Nicotine 14 MG PATCH TD SCH (14:32)
[2022-11-15] MEDS: Ipratropium/Albuterol 3 ML NEB EZPAP SCH ×2 (03:26→07:19)
[2022-11-15] MEDS: traMADol HCl 50 MG TAB PO PRN (05:09)
[2022-11-15] MEDS: Polyethylene Glycol 3350 17 GM Packet PO SCH (08:55)
[2022-11-15] MEDS: Famotidine 20 MG TAB PO SCH (08:55)
[2022-11-15] MEDS: Furosemide 20 MG TAB PO SCH (08:55)
[2022-11-15] MEDS: Senokot S 8.6-50 MG TAB PO SCH (08:55)
[2022-11-15] MEDS: Multivit, Therapeutic 1 TAB PO SCH (08:56)
[2022-11-15] MEDS ORDERED: Polyethylene Glycol 3350 17 GM Packet PO SCH (09:00)
[2022-11-15 11:50] VITALS: BP 112/71; TEMP 97.9
== END 2022-11-15 11:40 | disposition home or self-care (01) | DRG 163 ==
LOC: SURG B 17:01 → IMCU/EMU 11-08 18:41 → T4-A 11-14 11:51
PROVIDERS: ADMIT Family Medicine; ATTEND Internal Medicine
PROC: 02BN0ZX Excision of Pericardium, Open Approach, Diagnostic (ICD-10-PCS; principal; 2022-11-08)
PROC: 0FT44ZZ Resection of Gallbladder, Percutaneous Endoscopic Approach (ICD-10-PCS; 2022-11-08)
PROC: 07B73ZX Excision of Thorax Lymphatic, Percutaneous Approach, Diagnostic (ICD-10-PCS; 2022-11-08)
PROC: 3E033XZ Introduction of Vasopressor into Peripheral Vein, Percutaneous Approach (ICD-10-PCS; 2022-11-08)
PROC: 5A0945A Assistance with Respiratory Ventilation, 24-96 Consecutive Hours, High Flow/Velocity Cannula (ICD-10-PCS; 2022-11-09)
PROC: 5A09457 Assistance with Respiratory Ventilation, 24-96 Consecutive Hours, Continuous Positive Airway Pressure (ICD-10-PCS; 2022-11-09)
DX: C78.01 Secondary malignant neoplasm of right lung (principal); J96.01 Acute respiratory failure with hypoxia; K81.0 Acute cholecystitis; E87.20 Acidosis, unspecified; C79.89 Secondary malignant neoplasm of other specified sites; J90 Pleural effusion, not elsewhere classified; I31.4 Cardiac tamponade; I31.31 Malignant pericardial effusion in diseases classified elsewhere; E87.1 Hypo-osmolality and hyponatremia; C56.9 Malignant neoplasm of unspecified ovary; F41.9 Anxiety disorder, unspecified; I10 Essential (primary) hypertension; F17.290 Nicotine dependence, other tobacco product, uncomplicated; J43.9 Emphysema, unspecified; Z79.899 Other long term (current) drug therapy; Z90.710 Acquired absence of both cervix and uterus; Z98.890 Other specified postprocedural states; Z80.42 Family history of malignant neoplasm of prostate; Z80.0 Family history of malignant neoplasm of digestive organs; K59.00 Constipation, unspecified
CPT/HCPCS: 36415; 36416; 70553; 71045; 74177; 80048; 80053; 80076; 82105; 85025; 86301; 86304; 88112; 88304; 88305; 88341; 88342; 93306; 93970; 94640; 94660; C1889; C9113; J1100; J1650; J1885; J1940; J1956; J2270; J2272; J2405; J2704; J3010; J7120; J7620; Q9967

== ENCOUNTER 2022-11-27 12:30 | Outpatient (CLI) | payer OTHER | END 2022-11-27 12:31 | disposition home or self-care (01) | LOC: PET 12:30 | PROVIDERS: ATTEND Internal Medicine | DX: C34.11 Malignant neoplasm of upper lobe, right bronchus or lung (principal) | CPT/HCPCS: 78815; A9552 ==

== ENCOUNTER 2023-01-09 08:45 | Outpatient (CLI) | payer OTHER | END 2023-01-09 08:46 | disposition home or self-care (01) | LOC: PET 08:45 | PROVIDERS: ATTEND Internal Medicine | DX: C34.11 Malignant neoplasm of upper lobe, right bronchus or lung (principal) | CPT/HCPCS: 78815; A9552 ==

== ENCOUNTER 2023-01-24 11:07 | Outpatient (CLI) | payer OTHER | END 2023-01-24 11:08 | disposition home or self-care (01) | LOC: RAD 11:07 | PROVIDERS: ATTEND Internal Medicine Critical Care Medicine | DX: R06.00 Dyspnea, unspecified (principal) | CPT/HCPCS: 71046 ==

== ENCOUNTER → 2023-02-24 | Outpatient (CLI) | payer OTHER | LOC: PET 09:30 | PROVIDERS: ATTEND Internal Medicine | DX: C34.11 Malignant neoplasm of upper lobe, right bronchus or lung (principal); R59.0 Localized enlarged lymph nodes; J98.4 Other disorders of lung | CPT/HCPCS: 78815; A9552 ==

== ENCOUNTER 2023-05-02 11:04 | Outpatient (CLI) | payer OTHER | END 2023-05-02 11:05 | disposition home or self-care (01) | LOC: RAD 11:04 | PROVIDERS: ATTEND Internal Medicine Critical Care Medicine | DX: R06.00 Dyspnea, unspecified (principal) | CPT/HCPCS: 71046 ==

== ENCOUNTER 2023-05-30 07:57 | Outpatient (CLI) | payer OTHER | END 2023-05-30 07:58 | disposition home or self-care (01) | LOC: CT 07:57 | PROVIDERS: ATTEND Internal Medicine | DX: C34.90 Malignant neoplasm of unspecified part of unspecified bronchus or lung (principal); J90 Pleural effusion, not elsewhere classified; K76.9 Liver disease, unspecified; R59.0 Localized enlarged lymph nodes; R91.8 Other nonspecific abnormal finding of lung field | CPT/HCPCS: 71260; 74177; J1642 ==

== ENCOUNTER 2023-10-29 07:37 | Outpatient (CLI) | payer OTHER ==
[2023-10-29] MEDS ORDERED: Iopamidol 370 76% 100 ML VIAL ONE (10:47)
== END 2023-10-29 07:38 | disposition home or self-care (01) ==
LOC: CT 07:37
PROVIDERS: ATTEND Internal Medicine
DX: C34.90 Malignant neoplasm of unspecified part of unspecified bronchus or lung (principal); J92.9 Pleural plaque without asbestos; J98.4 Other disorders of lung
CPT/HCPCS: 71260; 74177; Q9967

== ENCOUNTER 2023-12-15 15:57 | Outpatient (CLI) | payer OTHER | END 2023-12-15 15:58 | disposition home or self-care (01) | LOC: SCSRAD 15:57 | PROVIDERS: ATTEND Family Medicine | DX: R07.9 Chest pain, unspecified (principal) | CPT/HCPCS: 71046 ==

== ENCOUNTER 2024-04-23 11:45 | Outpatient (CLI) | payer OTHER | END 2024-04-23 11:46 | disposition home or self-care (01) | LOC: PET 11:45 | PROVIDERS: ATTEND Internal Medicine | DX: C34.11 Malignant neoplasm of upper lobe, right bronchus or lung (principal); R93.3 Abnormal findings on diagnostic imaging of other parts of digestive tract | CPT/HCPCS: 78815; A9552 ==

== ENCOUNTER 2024-12-13 10:01 | Outpatient (CLI) | payer OTHER | END 2024-12-13 10:02 | disposition home or self-care (01) | LOC: BICMAMMO 10:01 | PROVIDERS: ATTEND Family Medicine | DX: Z12.31 Encounter for screening mammogram for malignant neoplasm of breast (principal); Z85.118 Personal history of other malignant neoplasm of bronchus and lung | CPT/HCPCS: 77063; 77067 ==

== ENCOUNTER 2025-04-04 09:14 | Outpatient (CLI) | payer OTHER | END 2025-04-04 09:15 | disposition home or self-care (01) | LOC: SCSMRI 09:14 | PROVIDERS: ATTEND Internal Medicine | DX: C34.11 Malignant neoplasm of upper lobe, right bronchus or lung (principal) | CPT/HCPCS: 70553; 76376 ==